=== PATIENT | female | born 1990 | race Caucasian/White ===

== ENCOUNTER 2021-10-07 08:19 | Emergency (ER) | payer OTHER | END 2021-10-07 09:52 | disposition home or self-care (01) | LOC: MADERS 08:19 | DX: J06.9 Acute upper respiratory infection, unspecified (principal); R53.83 Other fatigue | CPT/HCPCS: 99283 ==

== ENCOUNTER 2024-12-11 12:49 | Emergency (ER) | payer OTHER, SELFPAY ==
[2024-12-11] MEDS ORDERED: Ibuprofen 800 MG TAB ONE (13:02)
== END 2024-12-11 14:18 | disposition home or self-care (01) ==
LOC: MADERS 12:49
DX: M79.645 Pain in left finger(s) (principal); F17.210 Nicotine dependence, cigarettes, uncomplicated; W50.0XXA Accidental hit or strike by another person, initial encounter; Y93.89 Activity, other specified
CPT/HCPCS: 99283